=== PATIENT | male | born 2000 | race Caucasian/White ===

== ENCOUNTER 2018-03-13 09:47 | Observation (INO) ==
[2018-03-13 10:44] LABS: Hematocrit (blood only) 41.6 % (42-52); Hemoglobin 14.3 g/dL (14.0-18.0); Mean Corpuscular Hgb Conc 34.4 g/dL (32-36); Mean Corpuscular Volume 82.9 fL (80-100); Platelet Count 225 K/uL (130-400); RDW Coefficient of Variation 13.1 % (11.5-14.5); RDW Standard Deviation 39.3 fL (36.4-46.3); Red Blood Count 5.02 M/uL (4.7-6.1); White Blood Count 4.25 K/uL (4.8-10.8)
--- NOTE | 2018-03-13 10:53 | XRay Report ---
XR chest 1V portable CLINICAL HISTORY: weakness COMPARISON STUDY: No previous studies for comparison. FINDINGS: The heart is the upper limits of normal in size. There is no failure. There is no focal pul monary consolidation. There are no pleural effusions.[ IMPRESSION: No active disease in the chest. Electronically signed by: Anibal Collins M.D. 03/13/2018 10:52 AM
[2018-03-13 11:04] LABS: Albumin Level 3.9 gm/dl (3.4-5.0); BUN Creatinine Ratio 12.4 (10-20); Est GFR (African American) 115.2; Est GFR (Non-African American) 99.4; Magnesium 2.2 mg/dl (1.8-2.4); Potassium 4.1 mmol/L (3.5-5.1)
[2018-03-13 11:19] LABS: Bilirubin,Total 0.5 mg/dl (0.2-1); Total Protein 7.9 gm/dl (6.4-8.2)
[2018-03-13] MEDS ORDERED: SODIUM CHLORIDE 0.9% 1000ML 2,000 ML IV ONE (11:36)
--- NOTE | 2018-03-13 12:35 | History & Physical Report ---
Date of Service March 13, 2018 Assessment & Plan (1) Paresthesias: Exact etiology of paresthesias of hands, face and left thigh experienced yesterday and to a degree today is uncertain. TSH is normal. Magnesium level is normal. Other labs largely normal. I don't think his caffeine use would cause this although caffeine can cause neurological irritability (bletharospasm as an example). He could have carpal tunnel syndrome of both hands but this would not explain the facial and left thigh symptoms he had. Plan - Admit to observation. Place on telemetry. Check a vitamin B12 level to be complete. Check lyme's titer. MRI brain w/o contrast to exclude any SWITCH[employer]PERATOR process. If additional labs and MRI brain are normal then can likely be d/c home late tonight. If symptoms recur or there is something found on testing then will keep overnight for additional work-up. Present on Admission?: Yes (2) Rhabdomyolysis: Very mild, CPK is only 1264. This is due to his weight lifting work-out yesterday AM. Hydrate, and repeat the CPK later today. Will travel counselor automobile club him on importance of adequate hydration following work-outs. Doubt he takes steroids to enhance his work-outs but will check a total testosterone level to be complete. Again if MRI brain is normal, repeat labs are acceptable, and he has no recurrent symptoms then can likely d/c home later today. Mother was updated by phone at bedside with pt's permission. Place on observation status for now. Present on Admission?: Yes History of Present Illness Chief Complaint: numbness/tingling Primary Care Provider: [facility] 18yo male with no PMH, currently a student at [employer], who presents with concerns of paresthesias. Patient states he has been in good health living a typical college life. 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 He works out regularly lifting weights and doing aerobic activities as well without any cardiopulmonary symptoms such as chest pain, dyspnea, near-syncope, syncope, palpitations, etc. Yesterday he did a lifting work-out including bench press, etc. This was followed by drinking about 3 cups of regular coffee as well as an energy drink. Late yesterday AM, about 11am, he developed "tingling" in his hands, left face, and left thigh. He laid down at his home and simply rested. The tingling lasted into the afternoon but resolved by 3 or 4pm. He has never had paresthesias before. The tingling was NOT associated with motor weakness, headache, difficulty speaking, seizure, or other neurological symptoms. He felt fine for the rest of the day and went to bed last pm without any symptoms. Upon awakening this am he had recurrent b/l hand numbness/tingling - similar to yesterday. He reported that he got up and started his morning routine and numbness ultimately resolved. He then came to the ER for evaluation. During my assessment he denies any paresthesias of any location, weakness, etc. Patient denies illicit drug use including steroids to enhance his lifting. Denies etoh or tobacco. He does take an amino acid supplement a few days a week. Allergies Allergy/AdvReac Type Severity Reaction Status Date / Time No Known Allergies Allergy Unverified 03/13/18 10:58 Home Medications Home Medications Medication Instructions Recorded Confirmed Type Amio Acid 2 scoop/day PO UD 03/13/18 03/13/18 History Past Med/Surg History Medical History No known problems No significant past surgical history Family History Mother Chronic hypertension Social History marital status: single current occupational status: student current occupation: [employer] Student Feels Safe at Home: Yes Smoking Status: Never smoker Hx Alcohol Use: No Hx Substance Use: No Preferred Language: Ivorian Communication Ability: Effective Visual Impairment: No Limitations Hearing Ability: Normal well-balanced diet: daily or most days caffeine: Yes (3+ coffees/day) Review of Systems Constitutional: no fever, no chills, no sweats, no body aches, no fatigue, no malaise, no weakness, no anorexia, no weight loss and no weight gain Eyes: no worsening vision Ear, Nose, Mouth, Throat: no nasal congestion, no sore throat and no dysphagia Respiratory: no cough, no dyspnea and no dyspnea on exertion Cardiovascular: no chest pain, no chest pain at rest, no chest pain with activity, no dyspnea at rest, no orthopnea, no paroxysmal nocturnal dyspnea, no palpitations and no syncope Gastrointestinal: no abdominal pain, no nausea, no vomiting, no constipation and no diarrhea/loose stools Genitourinary (Male): no dysuria Musculoskeletal: no back pain, no neck pain and no joint pain Integumentary: no rash Neurologic: + numbness and + paresthesia; no localized weakness, no generalized weakness, no paralysis, no lack of coordination, no radiating pain, no seizure- like activity and no headache(s) Psychiatric: no depression Endocrine: no cold intolerance and no heat intolerance Hematologic / Lymphatic: no easy bleeding Physical Exam 2 Vital Signs (Past 24 Hours): Last Vital Signs Temp 36.6 C 03/13/18 09:53 Pulse 55 L 03/13/18 11:54 Resp 17 03/13/18 11:54 BP 119/64 03/13/18 11:54 Pulse Ox 97 03/13/18 11:54 Constitutional: well developed, well nourished and average body habitus; no acute distress and not ill appearing muscular Eyes: PERRL, conjunctivae normal, anicteric sclerae EOM intact bilaterally ENMT: external ear and nose normal, oropharynx normal Ears: no TM abnormality Mouth: no oropharynx abnormality and no oral mucosal abnormality Neck: trachea midline, no thyromegaly Respiratory: normal respiratory effort, lungs clear to auscultation Cardiovascular: RRR, no murmur, no edema Heart Sounds: normal S1 and normal S2 Vessels: posterior tibial pulses present and dorsalis pedis pulses present; no JVD Gastrointestinal (Abdomen): normal bowel sounds, soft, nontender, no hepatosplenomegaly Musculoskeletal: no cyanosis or clubbing, extremities motor strength 5/5 Skin: no rashes, warm and dry Neurologic: patellar DTR's 2+ bilat, sensation intact and PERRL, EOMI, accommodation nl, no face palsy, no dysarthria normal touch/pain/ proprioception and CN's II-XI intact bilaterally Speech / Cognition: normal speech Motor/Sensory: no tremor negative phalen's test b/l Psychiatric: A+Ox3, euthymic affect Lymphatic: no cervical lymphadenopathy Results & Data Laboratory Results Laboratory Results - last 24 hr 03/13/18 03/13/18 03/13/18 10:24 10:30 10:30 WBC 4.25 L RBC 5.02 Hgb 14.3 Hct 41.6 L MCV 82.9 MCH 28.5 MCHC 34.4 RDW Std Deviation 39.3 RDW Coeff of [place] 13.1 Plt Count 225 MPV 9.0 Sodium 137 Potassium 4.1 Chloride 104 Carbon Dioxide 25 Anion Gap 8.0 BUN 13 Creatinine 1.07 Est Cr Clr Drug Dosing 121.0 Est GFR ( Amer) 115.2 Est GFR (Non-Af Amer) 99.4 BUN/Creatinine Ratio 12.4 Glucose 70 POC Glucose 83 Calcium 9.0 Magnesium 2.2 Total Bilirubin 0.5 AST 36 ALT 44 Alkaline Phosphatase 53 Total Creatine Kinase 1264 H Total Protein 7.9 Albumin 3.9 Globulin 4.0 Albumin/Globulin Ratio 1.0 TSH 1.970 Diagnostic Findings CXR - no infiltrates. EKG - Sinus kimberli; sinus arrhythmia; early repolarization phenomenon, no ST changes. Code Status & VTE Plan Code Status level 1 full code VTE Prophylaxis Plan VTE Prophylaxis will be ordered: No Reason for no VTE drug order: Treatment not indicated Reason for no VTE mechanical prophylaxis: Treatment not indicated _ (1) Rhabdomyolysis Encounter type: Rhabdomyolysis type: non-traumatic Qualified Code(s): M62.82 - Rhabdomyolysis
[2018-03-13 13:19] LABS: Lyme Ab IgG w/WB Rflx Negative (Negative); Lyme Ab IgM w/WB Rflx Negative (Negative)
[2018-03-13 13:23] LABS: Amphetamines+Metham, Urine Neg (Neg); Barbiturates, Urine Neg (Neg); Benzodiazepine, Urine Neg (Neg); Cocaine, Urine Neg (Neg); MDMA (Ecstacy), Urine Neg (Neg); Methadone, Urine Neg (Neg); Opiate, Urine Neg (Neg); Phencyclidine, Urine Neg (Neg)
--- NOTE | 2018-03-13 14:17 | Magnetic Resonance Report ---
MR brain wo con CLINICAL HISTORY: 18 years-old Male presenting with paresthesias of left face, hands, left thigh. TECHNIQUE: Multisequence, multiplanar MR imaging of the brain was performed without the use of intrav enous contrast. IV contrast: None. COMPARISON: None. FINDINGS: Localizer images: Unremarkable. Ventricles and sulci normal in size. Brain parenchyma normal in appearance with preserved st-white differentiation. Postcontrast imaging was not performed. No mass effect or midline shift. No restricted diffusion to suggest acute ischemia. No hemorrhage. No extra-axial fluid collection. T2 skull base flow voids preserved. Bone marrow signal intensity within the calvarium within normal l imits. IMPRESSION: 1. No acute intracranial abnormality. Electronically signed by: Sam Palomares M.D. 03/13/2018 2:15 PM
[2018-03-13] MEDS ORDERED: ACETAMINOPHEN 325 MG TAB PO PRN (14:44)
[2018-03-13] MEDS ORDERED: SODIUM CHLORIDE 0.9% 1000ML 1,000 ML IV SCH (14:44)
[2018-03-13] MEDS ORDERED: ONDANSETRON INJ 2 MG/ML 2 ML VIAL IV PRN (14:44)
--- NOTE | 2018-03-13 16:52 | Emergency Department Note ---
Entered by Arpita Chilel acting as a scribe for Lon Mosley MD History of Present Illness General Chief complaint: Neuro Symptoms/Deficit Stated complaint: PINS AND NEEDLES THROUGHOUT BODY Time Seen by Provider: 03/13/18 10:16 Source: patient Mode of arrival: ambulatory Limitations: no limitations History of Present Illness Onset (ago): day(s) 1 Location: upper extremity (hands) Radiation: extremity (lower) and other (lips, face) Pain Consistency: + intermittent Maximum Pain Intensity: 0 Quality: + other (The patient describes this pain as taking a pre-workout and as a shooting pain. ) Associated symptoms: + other (The patient denies diarrhea. ); no chest pain, no fever/chills (The patient denies fever.), no headaches, no nausea/vomiting (The patient denies vomiting.) and no weakness The patient is a 18 year old male who presents to the ED with complaints of intermittent neurological symptoms with an onset yesterday. The patient states that he had more caffeine than normal yesterday prior to the onset of symptoms. He notes that while he was sitting in bed, both of his hands started tingling. The patient describes his symptoms as taking a pre-workout and as almost a shooting pain. He denies taking pre-workout for the past week. The patient notes that his tingling radiated into his face, lips, and legs. He states that he woke up this morning with similar tingling as last night. The patient denies weakness, fever, vomiting, headache, chest pain, and diarrhea. He notes that he takes amino acids. The patient states that he is a [employer] student. Home Medications Home Medications Medication Instructions Recorded Confirmed Type Amio Acid 2 scoop/day PO UD 03/13/18 03/13/18 History Allergies Allergy/AdvReac Type Severity Reaction Status Date / Time No Known Allergies Allergy Unverified 03/13/18 10:58 Past Med/Surg History Medical History No known problems No significant past surgical history Family History Mother Chronic hypertension Social History marital status: single Current Living Situation: Other Current Living Situation Comment: friends at [facility] current occupational status: student current occupation: [employer] Other Information That Helps Us Care for You: No Feels Safe at Home: Yes Safety Concerns: Feels Safe At This Time Smoking Status: Never smoker Do You Dip or Chew Tobacco: Yes (occasional) Hx Alcohol Use: No Hx Substance Use: No Beliefs That Will Affect Care: None Preferred Language: Bur[place]ian Communication Ability: Effective well-balanced diet: daily or most days caffeine: Yes (3+ coffees/day) Review of Systems See HPI for pertinent positives & negatives. and A total of 10 systems reviewed and were otherwise negative Physical Exam Vital Signs Vital Signs - 24 hr 03/13/18 09:53 03/13/18 10:00 03/13/18 10:57 Temperature 36.6 C Temperature Source Oral Sepsis Recent Fever Within 48 Hours No Sepsis Action Taken by Nursing No Action Required Pulse Rate 66 60 Pulse Rate [Apical] 61 Pulse Rhythm [Apical] Regular Pulse Strength [Apical] Normal Respiratory Rate 20 15 Respiratory Effort / Characteristics Non-Labored Non-Labored Respiratory Depth Normal Normal Blood Pressure 137/62 126/62 Blood Pressure [Left Arm] 126/62 Blood Pressure Mean 87 83 Blood Pressure Mean [Left Arm] 83 Blood Pressure Position [Left Arm] Sitting Pulse Oximetry 100 100 97 Oxygen Delivery Method Room Air Room Air Room Air 03/13/18 11:00 03/13/18 11:15 03/13/18 11:30 Temperature Temperature Source Sepsis Recent Fever Within 48 Hours Sepsis Action Taken by Nursing Pulse Rate 85 57 L 55 L Pulse Rate [Apical] Pulse Rhythm [Apical] Regular Pulse Strength [Apical] Normal Respiratory Rate 19 18 17 Respiratory Effort / Characteristics Respiratory Depth Blood Pressure 121/67 119/64 Blood Pressure [Left Arm] Blood Pressure Mean 85 82 Blood Pressure Mean [Left Arm] Blood Pressure Position [Left Arm] Pulse Oximetry 96 96 96 Oxygen Delivery Method 03/13/18 11:45 03/13/18 11:54 03/13/18 12:00 Temperature Temperature Source Sepsis Recent Fever Within 48 Hours Sepsis Action Taken by Nursing Pulse Rate 83 67 Pulse Rate [Apical] 55 L Pulse Rhythm [Apical] Regular Pulse Strength [Apical] Normal Respiratory Rate 19 17 21 Respiratory Effort / Characteristics Non-Labored Respiratory Depth Normal Blood Pressure 138/88 Blood Pressure [Left Arm] 119/64 Blood Pressure Mean 104 Blood Pressure Mean [Left Arm] 82 Blood Pressure Position [Left Arm] Sitting Pulse Oximetry 97 97 92 Oxygen Delivery Method Room Air 03/13/18 12:15 03/13/18 12:30 03/13/18 12:31 Temperature Temperature Source Sepsis Recent Fever Within 48 Hours Sepsis Action Taken by Nursing Pulse Rate 64 56 L 58 L Pulse Rate [Apical] 69 Pulse Rhythm [Apical] Regular Pulse Strength [Apical] Normal Respiratory Rate 22 18 18 Respiratory Effort / Characteristics Non-Labored Respiratory Depth Normal Blood Pressure 116/72 Blood Pressure [Left Arm] 116/72 Blood Pressure Mean 86 Blood Pressure Mean [Left Arm] 86 Blood Pressure Position [Left Arm] Sitting Pulse Oximetry 98 98 Oxygen Delivery Method Room Air 03/13/18 12:46 03/13/18 13:00 03/13/18 13:08 Temperature Temperature Source Sepsis Recent Fever Within 48 Hours Sepsis Action Taken by Nursing Pulse Rate 60 61 Pulse Rate [Apical] 58 L Pulse Rhythm [Apical] Regular Pulse Strength [Apical] Normal Respiratory Rate 17 23 18 Respiratory Effort / Characteristics Non-Labored Respiratory Depth Normal Blood Pressure Blood Pressure [Left Arm] 116/72 Blood Pressure Mean Blood Pressure Mean [Left Arm] 86 Blood Pressure Position [Left Arm] Sitting Pulse Oximetry 98 Oxygen Delivery Method Room Air 03/13/18 13:09 03/13/18 13:15 03/13/18 13:30 Temperature Temperature Source Sepsis Recent Fever Within 48 Hours Sepsis Action Taken by Nursing Pulse Rate 78 70 Pulse Rate [Apical] Pulse Rhythm [Apical] Pulse Strength [Apical] Respiratory Rate 17 17 Respiratory Effort / Characteristics Respiratory Depth Blood Pressure Blood Pressure [Left Arm] Blood Pressure Mean Blood Pressure Mean [Left Arm] Blood Pressure Position [Left Arm] Pulse Oximetry 100 95 Oxygen Delivery Method Room Air 03/13/18 13:35 03/13/18 13:43 03/13/18 15:43 Temperature 36.6 C 36.5 C Temperature Source Oral Oral Sepsis Recent Fever Within 48 Hours Sepsis Action Taken by Nursing Pulse Rate 68 Pulse Rate [Apical] 68 56 L Pulse Rhythm [Apical] Regular Pulse Strength [Apical] Normal Respiratory Rate 17 17 18 Respiratory Effort / Characteristics Non-Labored Respiratory Depth Normal Blood Pressure 109/71 Blood Pressure [Left Arm] 109/71 122/69 Blood Pressure Mean Blood Pressure Mean [Left Arm] 83 86 Blood Pressure Position [Left Arm] Sitting Lying Pulse Oximetry 95 95 98 Oxygen Delivery Method Room Air Room Air Room Air 03/13/18 16:00 Temperature Temperature Source Sepsis Recent Fever Within 48 Hours Sepsis Action Taken by Nursing Pulse Rate 94 H Pulse Rate [Apical] Pulse Rhythm [Apical] Pulse Strength [Apical] Respiratory Rate Respiratory Effort / Characteristics Respiratory Depth Blood Pressure Blood Pressure [Left Arm] Blood Pressure Mean Blood Pressure Mean [Left Arm] Blood Pressure Position [Left Arm] Pulse Oximetry Oxygen Delivery Method GENERAL: Patient is in no acute distress. HEENT: No acute trauma, normocephalic atraumatic, mucous membranes moist, no nasal congestion, no scleral icterus. NECK: No stridor, no adenopathy, no meningismus, trachea is midline. LUNGS: Clear to auscultation bilaterally, no wheeze, no rhonchi, breath sounds equal. HEART: Without murmurs gallops or rubs, regular rate and rhythm. ABDOMEN: Soft, nontender, bowel sounds positive, no hernias, no peritonitis. EXTREMITIES: No cyanosis or edema, full range of motion of all the joints without pain or difficulty, no signs for acute trauma. Strong distal radial and pedal pulses bilaterally. NEUROLOGIC: Oriented x 3, no acute motor or sensory deficits, no focal weakness. No cerebellar deficits or pronator drift. Radial, ulnar, and median nerve intact bilaterally. SKIN: No rash, no jaundice, no diaphoresis. Course 1018: Past medical records reviewed. The patient was evaluated in room B7, and a complete history and physical examination were performed. 1148: I reviewed the patient's case with Dr. Dragan Mccullough [facility] [place]. He states that he will come down and see the patient. 1225: I reviewed the patient's case with Dr. Dragan Mccullough [facility] [place]. He states that he would like the patient brought in to the hospital for observation. Consultations Consultation #1: 1148: I reviewed the patient's case with Dr. Dragan Mccullough [facility] [place]. He states that he will come down and see the patient. Time: 11:48 Consultation #2: 1225: I reviewed the patient's case with Dr. Dragan Mccullough [facility] [place]. He states that he would like the patient brought in to the hospital for observation. Time: 12:25 Administered Medications Sodium Chloride (Nss 1000ml) 1,000 mls @ 150 mls/hr IV .[id number] YOON Stop: 04/12/18 14:43 Last Admin: 03/13/18 14:54 Dose: 150 mls/hr Discontinued Medications Sodium Chloride (Nss 1000ml) 2,000 mls @ 999 mls/hr IV .Q2H1M ONE Stop: 03/13/18 13:36 Last Infusion: 03/13/18 13:47 Dose: 0 mls/hr Admin: 03/13/18 11:56 Dose: 999 mls/hr Medical Decision Making Differential Diagnosis Differential Diagnoses Include: Electrolyte imbalance, rhabdomyolysis, anemia, thyroid disorder, dysrhythmia, cardiomegaly, stroke, MS, arterial insufficiency, medication reaction. Medical Records Attestation: I reviewed the patient's medical records. Home Medications Current Medication List: was personally reviewed by me Laboratory Data Attestation: I reviewed the patient's lab results. Result diagrams: 03/13/18 10:30 03/13/18 10:30 Lab Results 03/13/18 03/13/18 03/13/18 Range/Units 10:24 10:30 10:30 WBC 4.25 L (4.8-10.8) K/uL RBC 5.02 (4.7-6.1) M/uL Hgb 14.3 (14.0-18.0) g/dL Hct 41.6 L (42-52) % MCV 82.9 (80-100) fL MCH 28.5 (25-34) pg MCHC 34.4 (32-36) g/dL RDW Std Deviation 39.3 (36.4-46.3) fL RDW Coeff of Liberty 13.1 (11.5-14.5) % Plt Count 225 (130-400) K/uL MPV 9.0 (7.4-10.4) fL Sodium 137 (136-145) mmol/L Potassium 4.1 (3.5-5.1) mmol/L Chloride 104 (98-107) mmol/L Carbon Dioxide 25 (21-32) mmol/L Anion Gap 8.0 (3-11) BUN 13 (7-18) mg/dl Creatinine 1.07 (0.6-1.4) mg/dl Est Cr Clr Drug Dosing 121.0 ml/min Est GFR ( Amer) 115.2 Est GFR (Non-Af Amer) 99.4 BUN/Creatinine Ratio 12.4 (10-20) Glucose 70 (70-99) mg/dl POC Glucose 83 (70-99) Calcium 9.0 (8.5-10.1) mg/dl Magnesium 2.2 (1.8-2.4) mg/dl Total Bilirubin 0.5 (0.2-1) mg/dl AST 36 (15-37) U/L ALT 44 (12-78) U/L Alkaline Phosphatase 53 (45-117) U/L Total Creatine Kinase 1264 H (39-308) U/L Total Protein 7.9 (6.4-8.2) gm/dl Albumin 3.9 (3.4-5.0) gm/dl Globulin 4.0 (2.5-4.0) gm/dl Albumin/Globulin Ratio 1.0 (0.9-2) Vitamin B12 (211-911) pg/ml TSH 1.970 (0.300-4.500) uIu/ml Testosterone Level ng/dl Urine Opiates Screen (Neg) Ur Methadone, Qual (Neg) Urine Barbiturates (Neg) Ur Phencyclidine (PCP) (Neg) U Amphetamin/Meth Scrn (Neg) MDMA (Ecstasy) Screen (Neg) U Benzodiazepines Scrn (Neg) Ur Cocaine Metabolite (Neg) U Marijuana (THC) Screen (Neg) Lyme Disease IgG Ab (Negative) Lyme Disease IgM Ab (Negative) 03/13/18 03/13/18 03/13/18 Range/Units 10:30 12:40 16:47 WBC (4.8-10.8) K/uL RBC (4.7-6.1) M/uL Hgb (14.0-18.0) g/dL Hct (42-52) % MCV (80-100) fL MCH (25-34) pg MCHC (32-36) g/dL RDW Std Deviation (36.4-46.3) fL RDW Coeff of Liberty (11.5-14.5) % Plt Count (130-400) K/uL MPV (7.4-10.4) fL Sodium (136-145) mmol/L Potassium (3.5-5.1) mmol/L Chloride (98-107) mmol/L Carbon Dioxide (21-32) mmol/L Anion Gap (3-11) BUN (7-18) mg/dl Creatinine (0.6-1.4) mg/dl Est Cr Clr Drug Dosing ml/min Est GFR ( Amer) Est GFR (Non-Af Amer) BUN/Creatinine Ratio (10-20) Glucose (70-99) mg/dl POC Glucose (70-99) Calcium (8.5-10.1) mg/dl Magnesium (1.8-2.4) mg/dl Total Bilirubin (0.2-1) mg/dl AST (15-37) U/L ALT (12-78) U/L Alkaline Phosphatase (45-117) U/L Total Creatine Kinase 890 H (39-308) U/L Total Protein (6.4-8.2) gm/dl Albumin (3.4-5.0) gm/dl Globulin (2.5-4.0) gm/dl Albumin/Globulin Ratio (0.9-2) Vitamin B12 (211-911) pg/ml TSH (0.300-4.500) uIu/ml Testosterone Level ng/dl Urine Opiates Screen Neg (Neg) Ur Methadone, Qual Neg (Neg) Urine Barbiturates Neg (Neg) Ur Phencyclidine (PCP) Neg (Neg) U Amphetamin/Meth Scrn Neg (Neg) MDMA (Ecstasy) Screen Neg (Neg) U Benzodiazepines Scrn Neg (Neg) Ur Cocaine Metabolite Neg (Neg) U Marijuana (THC) Screen Neg (Neg) Lyme Disease IgG Ab Negative (Negative) Lyme Disease IgM Ab Negative (Negative) 03/13/18 03/13/18 Range/Units 16:47 16:47 WBC (4.8-10.8) K/uL RBC (4.7-6.1) M/uL Hgb (14.0-18.0) g/dL Hct (42-52) % MCV (80-100) fL MCH (25-34) pg MCHC (32-36) g/dL RDW Std Deviation (36.4-46.3) fL RDW Coeff of Liberty (11.5-14.5) % Plt Count (130-400) K/uL MPV (7.4-10.4) fL Sodium (136-145) mmol/L Potassium (3.5-5.1) mmol/L Chloride (98-107) mmol/L Carbon Dioxide (21-32) mmol/L Anion Gap (3-11) BUN (7-18) mg/dl Creatinine (0.6-1.4) mg/dl Est Cr Clr Drug Dosing ml/min Est GFR ( Amer) Est GFR (Non-Af Amer) BUN/Creatinine Ratio (10-20) Glucose (70-99) mg/dl POC Glucose (70-99) Calcium (8.5-10.1) mg/dl Magnesium (1.8-2.4) mg/dl Total Bilirubin (0.2-1) mg/dl AST (15-37) U/L ALT (12-78) U/L Alkaline Phosphatase (45-117) U/L Total Creatine Kinase (39-308) U/L Total Protein (6.4-8.2) gm/dl Albumin (3.4-5.0) gm/dl Globulin (2.5-4.0) gm/dl Albumin/Globulin Ratio (0.9-2) Vitamin B12 452 (211-911) pg/ml TSH (0.300-4.500) uIu/ml Testosterone Level 652.2 ng/dl Urine Opiates Screen (Neg) Ur Methadone, Qual (Neg) Urine Barbiturates (Neg) Ur Phencyclidine (PCP) (Neg) U Amphetamin/Meth Scrn (Neg) MDMA (Ecstasy) Screen (Neg) U Benzodiazepines Scrn (Neg) Ur Cocaine Metabolite (Neg) U Marijuana (THC) Screen (Neg) Lyme Disease IgG Ab (Negative) Lyme Disease IgM Ab (Negative) Imaging Data Radiologist's Impression: Radiology results as stated below per my review and the radiologist's interpretation: XR chest 1V portable CLINICAL HISTORY: weakness COMPARISON STUDY: No previous studies for comparison. FINDINGS: The heart is the upper limits of normal in size. There is no failure. There is no focal pulmonary consolidation. There are no pleural effusions.[ IMPRESSION: No active disease in the chest. Electronically signed by: Anibal Collins M.D. 03/13/2018 10:52 AM Dictated: 03/13/18 1052 Transcribed: 03/13/18 1052 ECG Data Attestation: I personally reviewed and interpreted this ECG as follows: Indication: other (neuro symptoms) Rate (beats per minute): 57 Rhythm: sinus bradycardia Findings: + other (sinus arrhythmia); no PVC and no ST elevation Blood Pressure Blood Pressure Findings: Normal blood pressure MDM Narrative There is no leukocytosis or worrisome anemia. No significant electrolyte abnormality, kidney failure or hepatitis. The patient appears to be in a euthyroid state. Urine tox is negative. Total creatinine kinase was elevated at 1200, this is consistent with muscle breakdown and mild rhabdomyolysis. On exam, there were no focal neurologic deficits. No evidence for neurovascular compromise. The patient was not toxic or febrile. The patient was given IV saline, 2 L. This was given to help clear the rhabdomyolysis. Because of the patient's complaints, I did consult internal medicine. They saw the patient in the ED and have decided to keep the patient in the hospital to be sure he is improving with fluids and time. The cause for his presentation is unclear although, possibly, his symptoms are related to the mild rhabdo and the use of weight lifting supplements. Impression & Plan Rhabdomyolysis, Extremity numbness Discharge Plan Visit Data *Final* Discharge Date/Time: 03/13/18 13:43 Chief Complaint: Neuro Symptoms/Deficit Stated Complaint: PINS AND NEEDLES THROUGHOUT BODY ED Provider: Lon Mosley Discharge Problem: Rhabdomyolysis, Extremity numbness Patient Disposition: Admitted As Inpatient Discharge Instructions Interventions: ED Discharge Assessment Last Done: 03/13/18 13:43 The libanibe's documentation has been prepared under my direction and personally reviewed by me in its entirety. I confirm that the note above accurately reflects all work, treatment, procedures, and medical decision making performed by me.
--- NOTE | 2018-03-14 00:29 | Discharge Summary ---
Date of Service date of admission - March 13, 2018 date of discharge - March 13, 2018 Admission HPI Per Admitting Provider 18yo male with no PMH, currently a student at [employer], who presents with concerns of paresthesias. Patient states he has been in good health living a typical college life. 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 He works out regularly lifting weights and doing aerobic activities as well without any cardiopulmonary symptoms such as chest pain, dyspnea, near-syncope, syncope, palpitations, etc. Yesterday he did a lifting work-out including bench press, etc. This was followed by drinking about 3 cups of regular coffee as well as an energy drink. Late yesterday AM, about 11am, he developed "tingling" in his hands, left face, and left thigh. He laid down at his home and simply rested. The tingling lasted into the afternoon but resolved by 3 or 4pm. He has never had paresthesias before. The tingling was NOT associated with motor weakness, headache, difficulty speaking, seizure, or other neurological symptoms. He felt fine for the rest of the day and went to bed last pm without any symptoms. Upon awakening this am he had recurrent b/l hand numbness/tingling - similar to yesterday. He reported that he got up and started his morning routine and numbness ultimately resolved. He then came to the ER for evaluation. During my assessment he denies any paresthesias of any location, weakness, etc. Patient denies illicit drug use including steroids to enhance his lifting. Denies etoh or tobacco. He does take an amino acid supplement a few days a week. Principal Diagnosis paresthesias of hands; mild rhabdomyolysis Discharge Exam Constitutional well developed, well nourished and average body habitus; no acute distress and not ill appearing Eyes PERRL, conjunctivae normal, anicteric sclerae EOM intact bilaterally ENMT external ear and nose normal, oropharynx normal Ears: no TM abnormality Mouth: no oropharynx abnormality and no oral mucosal abnormality Neck trachea midline, no thyromegaly Respiratory normal respiratory effort, lungs clear to auscultation Cardiovascular RRR, no murmur, no edema Heart Sounds: normal S1 and normal S2 Vessels: posterior tibial pulses present and dorsalis pedis pulses present; no JVD Gastrointestinal (Abdomen) normal bowel sounds, soft, nontender, no hepatosplenomegaly Musculoskeletal no cyanosis or clubbing, extremities motor strength 5/5 Skin no rashes, warm and dry Neurologic patellar DTR's 2+ bilat, sensation intact and PERRL, EOMI, accommodation nl, no face palsy, no dysarthria normal touch/pain/proprioception and CN's II-XI intact bilaterally Speech / Cognition: normal speech Motor/Sensory: no tremor no dysmetria with finger/nose/finger maneuver Psychiatric A+Ox3, euthymic affect Lymphatic no cervical lymphadenopathy Discharge Data Allergies Allergy/AdvReac Type Severity Reaction Status Date / Time No Known Allergies Allergy Unverified 03/13/18 10:58 Ordered Studies MRI brain - Ventricles and sulci normal in size. Brain parenchyma normal in appearance with preserved st-white differentiation. Postcontrast imaging was not performed. No mass effect or midline shift. No restricted diffusion to suggest acute ischemia. No hemorrhage. No extra-axial fluid collection. T2 skull base flow voids preserved. Bone marrow signal intensity within the calvarium within normal limits. IMPRESSION: 1. No acute intracranial abnormality. Hospital Course (1) Paresthesias: Primarily both hands, intermittent, and often positional in nature (ie - the numbness would come on with bending his arms at the level of the elbows and improve with unbending the arms and simply moving around). He had facial numbness and left thigh numbness about 24 hours prior to admission as well. These latter symptoms did not recur. Potassium, magnesium, TSH, Lymes' IgM and IgG antibodies, and vitamin B12 level were all normal. MRI brain was normal. He had no neck pain or headache to suggest a cervical spine issue contributing to the symptoms. The exact etiology of the paresthesias was uncertain. However, the hand numbness seemed to be peripheral in nature given that the symptoms would improve with out-stretching his arms. I cannot rule out peripheral nerve entrapment at the level of the elbows or wrists. Cervical spine disease is felt to be much less likely. With respect to the facial and thigh paresthesias the exact etiology was also uncertain. The pattern of these 2 locations was odd and did not match up well with any specific nervous system lesion that would account for the symptoms. I suggested to the patient at discharge to follow-up with [facility] for additional testing if his symptoms persisted. I advised no heavy lifting or strenuous activities for several days after discharge. (2) Rhabdomyolysis: Very mild, peak CPK was just shy of 1300. This was due to a heavy weight lifting session about 24 hours prior to admission. He was hydrated, and his CPK improved into the 800s. He never had myalgias. Creatinine was stable while here. I recommended no heavy lifting or heavy exertional activities for several days post-discharge and also advised good hydration for the next few days as well. He was given additional recommendations to hydrate before, during, and after future work-outs once he resumes exercise. I recommended he stop his amino acid supplement as well. Total Time Total Time Spent Total Time Spent (In Minutes): 30 Total Time Includes: Examination of the Patient, Discharge Planning, Medication Reconciliation and Communication With Other Providers Discharge Plan Discharge Items Patient Disposition: Home - Self-Care Reason For Visit: PARESTHESIAS (numbness) Discharge Diagnosis: Numbness of hands - suspected to be peripheral nerve entrapment; MRI brain normal. Very mild rhabdomyolysis from heavy weight lifting. Discharge Goals: Diagnostic testing and Therapeutic intervention Activity: As commented below Activity Comment: NO WEIGHT LIFTING OR HEAVY EXERTIONAL ACTIVITY UNTIL CLEARED BY FAMILY Lifting: Wait until after follow-up appointment Exercise/Sports: Wait until after follow-up appointment Driving/Machine Use: No limitations Non-emergency contact: Primary Care Provider Call non-emergency contact if: you have any medication questions, your symptoms worsen and your temperature is above 100.5 Follow-up/Referrals: Tobi Murdock MD [Physician] - (If symptoms persist please follow up with [facility], Dr Murdock - or any of his partners. ) Diet: Regular Addtl Provider Instructions: You were admitted for very mild rhabdomyolysis which is when the muscles break down releasing a substance into the blood. The release of this chemical occurs with heavy weight lifting, long-distance swimming or running, etc. The number is only mildly elevated and will normalize with rest over the next 2-3 days. Please hydrate well with plenty of water and/or gatorade. Again please do not perform any weight lifting, heavy exertional activities, or going to the gym until cleared by your family doctor or [facility]. You also had numbness of the hands and partially the face. Your MRI brain was normal. Your lyme's testing, B12 level, thyroid level, electrolytes and kidney function , etc were normal. The hand numbness seems to be positional in that it improves with unbending your arms. This would suggest that you may have a peripheral nerve entrapment, perhaps from overuse of the arms from weight lifting/other activities. I am uncertain what caused the temporary facial numbness. If your symptoms do no improve please follow-up with [facility]. They can perform additional testing including imaging of the neck, nerve conduction studies/EMG studies, etc. Please STOP all amino acid supplements. Please limit your caffeine intake to 1 cup/day for now. For any pain/discomfort you can take [id number] motrin 400mg two times a day for the next 1-2 days, if needed. I will have our nurse navigator with [facility] contact you with a follow-up appointment with [facility]. Return to [facility] if - * you have fevers over 100.5 degrees * you develop weakness of the arms or legs * your numbness in the hands gets worse or you have associated weakness of the hands * any other concerns Prescriptions: Discontinued Amio Acid 2 scoop/day PO UD RF: 0 Stand-Alone Forms: My [facility], Work/School Release (Inpt) Discharge Orders: Discharge Order (Routine); Ordered 03/13/18 Ordered By: Jerrod Archibald Admission Data Admit Date/Time: 03/13/18 12:29 Attending Provider: Jerrod Archibald Admit Provider: Jerrod Archibald Primary Care Provider: José Miguel Sampson Other Providers: Jerrod Archibald Service: Telemetry Other Interventions: Discharge Summary Assessment (RN) Last Done: 03/13/18 20:16 Pending Studies at Discharge: No DC Date/Time DO NOT enter until pt leaves facility: 03/13/18 20:28
== END 2018-03-13 20:28 | disposition home or self-care (01) ==
LOC: 2N 09:47 → ED 09:47 → 2N 13:43